=== PATIENT | female | born 1945 | race African-American/Black ===

== ENCOUNTER → 2023-12-25 12:36 | Outpatient (REF) | payer MEDICARE, SELFPAY | LOC: WDC 12:36 | PROVIDERS: ATTENDING PHYSICIAN Family Medicine | DX: Z12.31 Encounter for screening mammogram for malignant neoplasm of breast (principal) | CPT/HCPCS: 77063; 77067 ==

== ENCOUNTER → 2024-12-29 12:01 | Outpatient (REF) | payer MEDICARE, SELFPAY | LOC: WDC 12:01 | PROVIDERS: ATTENDING PHYSICIAN Family Medicine | DX: Z12.31 Encounter for screening mammogram for malignant neoplasm of breast (principal) | CPT/HCPCS: 77063; 77067 ==